=== PATIENT | female | born 1935 | race Caucasian/White ===

== ENCOUNTER 2017-02-06 23:00 | Emergency (ER) | payer SELFPAY ==
[~2017-02-06] VITALS: Ht 152.4 cm; Wt 65.9 kg
[2017-02-06] MEDS ORDERED: LISI-662 PO (23:22)
[2017-02-06] MEDS ORDERED: METF500T4 PO (23:22)
[2017-02-06 23:27] LABS: GLUCOSE COMMENT 1 Doctor Notified; GLUCOSE,POINT OF CARE 146 MG/DL (70-110)
[2017-02-06 23:51] LABS: BASOPHILS % (AUTO) 0.1 % (0.0-2.0); EOSINOPHILS % (AUTO) 0.9 % (1.0-6.0); HEMATOCRIT 38.9 % (36-46); HEMOGLOBIN 12.5 g/dL (12.0-16.0); LYMPHOCYTES # (AUTO) 0.4 K/uL (1.0-4.8); LYMPHOCYTES % (AUTO) 5.7 % (22.0-44.0); MEAN CORPUSCULAR HEMOGLOBIN 27.8 pg (26.0-34.0); MEAN CORPUSCULAR HGB CONC 32.2 G/dL (31.0-37.0); MEAN CORPUSCULAR VOLUME 86 fL (80-100); MONOCYTES # (AUTO) 0.5 K/uL (0.1-1.0); MONOCYTES % (AUTO) 6.6 % (2.0-9.0); PLATELET COUNT (AUTO) 154 K/uL (150-450); RED BLOOD CELL COUNT(AUTO) 4.51 MIL/uL (4.00-5.20); RED CELL DISTRIBUTION WIDTH 15.3 % (11.5-14.5); WHITE BLOOD COUNT (AUTO) 6.9 K/uL (4.5-11.0)
[2017-02-06 23:55] LABS: NEUTROPHILS % (AUTO) 86.7 % (40.0-70.0)
[2017-02-07 00:03] LABS: PROTHROMBIN TIME 10.7 SEC (9.4-11.6)
[2017-02-07 00:05] LABS: ANION GAP 14 mmol/L (8-16); CALCIUM, TOTAL 8.5 mg/dL (8.8-10.5); CARBON DIOXIDE 23 mmol/L (22-29); CHLORIDE 99 mmol/L (98-107); CREATININE 1.29 mg/dL (0.60-1.30); GLOMERULAR FILTR. RATE CALC 40 mL/min (>60); POTASSIUM 4.1 mmol/L (3.5-5.1); SODIUM SERUM 136 mmol/L (136-145); UREA NITROGEN, BLOOD 17 mg/dL (7-18)
[2017-02-07 00:28] LABS: ALANINE AMINOTRANSFERASE 26 U/L (12-78); ASPARTATE AMINOTRANSFERASE 35 U/L (15-37); BILIRUBIN,TOTAL 0.6 mg/dL (0.1-1.0); CREATINE KINASE MB 0.8 ng/mL (0-5); CREATINE KINASE, TOTAL 116 U/L (26-192); TOTAL PROTEIN, SERUM 7.9 g/dL (6.4-8.2)
[2017-02-07] MEDS ORDERED: KETOROLAC TROMETHAMINE 30 MG/ML VIAL IVP ONE (02:45)
[2017-02-07] MEDS ORDERED: SODIUM CHLORIDE 0.9% 1,000 ML IV ONE (02:45)
[2017-02-07] MEDS ORDERED: DIPHENOXYLATE/ATROP 2.5-0.025 MG TABLET PO ONE (02:45)
[2017-02-07] MEDS ORDERED: ONDANSETRON HCL 4 MG/2 ML VIAL IVP ONE (02:45)
[2017-02-07] MEDS ORDERED: ACETAMINOPHEN 500 MG TABLET PO ONE (02:45)
[2017-02-07 03:30] VITALS: BP 115/72
== END 2017-02-07 03:47 | disposition home or self-care (01) ==
LOC: EMS 23:02
DX: K52.9 Noninfective gastroenteritis and colitis, unspecified (principal); E11.9 Type 2 diabetes mellitus without complications; E78.00 Pure hypercholesterolemia, unspecified; I10 Essential (primary) hypertension
CPT/HCPCS: 36415; 80053; 82550; 82553; 82962; 84484; 85025; 85610; 85730; 96360; 96374; 96375; 99285; J1885; J2405; J7030

== ENCOUNTER 2019-02-15 19:05 | Inpatient (IN) | payer SELFPAY ==
[~2019-02-15] VITALS: Ht 152.4 cm; Wt 69.6 kg
[~2019-02-15 19:05] MED LIST: LISI-662 PO; METF-960 PO
[2019-02-15] MEDS ORDERED: GABA-531 PO (19:22)
[2019-02-15] MEDS ORDERED: ASPI-1182 PO (19:22)
[2019-02-15 19:28] LABS: GLUCOSE,POINT OF CARE 118 MG/DL (70-110)
[2019-02-15] MEDS ORDERED: BARIUM SULFATE 0.1% SUSPENSION 450 ML BOTTLE PO ONE (19:45)
[2019-02-15] MEDS ORDERED: ONDANSETRON HCL 4 MG/2 ML VIAL IVP ONE (19:45)
[2019-02-15] MEDS ORDERED: SODIUM CHLORIDE 0.9% 1,000 ML IV ONE (19:45)
[2019-02-15] MEDS ORDERED: IOVERSOL 320 MG/ML 100 ML VIAL ONE (20:12)
[2019-02-15] MEDS ORDERED: SODIUM CHLORIDE 0.9% 100 ML ONE (20:13)
[2019-02-15 20:20] LABS: BASOPHILS % (AUTO) 0.7 % (0.0-2.0); EOSINOPHILS % (AUTO) 5.3 % (1.0-6.0); HEMATOCRIT 24.9 % (36-46); HEMOGLOBIN 8.1 g/dL (12.0-16.0); LYMPHOCYTES # (AUTO) 1.3 K/uL (1.0-4.8); LYMPHOCYTES % (AUTO) 35.1 % (22.0-44.0); MEAN CORPUSCULAR HEMOGLOBIN 24.1 pg (26.0-34.0); MEAN CORPUSCULAR HGB CONC 32.4 G/dL (31.0-37.0); MEAN CORPUSCULAR VOLUME 75 fL (80-100); MONOCYTES # (AUTO) 0.4 K/uL (0.1-1.0); NEUTROPHILS # (AUTO) 1.9 K/uL (1.8-7.7); NEUTROPHILS % (AUTO) 48.9 % (40.0-70.0); PLATELET COUNT (AUTO) 197 K/uL (150-450); RED BLOOD CELL COUNT(AUTO) 3.34 MIL/uL (4.00-5.20); RED CELL DISTRIBUTION WIDTH 17.6 % (11.5-14.5)
[2019-02-15 20:27] LABS: ANION GAP 11 mmol/L (8-16); CALCIUM, TOTAL 9.2 mg/dL (8.8-10.5); CARBON DIOXIDE 26 mmol/L (22-29); CHLORIDE 104 mmol/L (98-107); CREATININE 0.77 mg/dL (0.60-1.30); GLOMERULAR FILTR. RATE CALC > 60 mL/min (>60); GLUCOSE,RANDOM 107 mg/dL (70-110); POTASSIUM 4.3 mmol/L (3.5-5.1); SODIUM SERUM 141 mmol/L (136-145); UREA NITROGEN, BLOOD 15 mg/dL (7-18)
[2019-02-15 20:33] LABS: ALANINE AMINOTRANSFERASE 25 U/L (12-78); ALBUMIN 3.7 g/dL (3.4-5.0); ALKALINE PHOSPHATASE 97 U/L (46-116); ASPARTATE AMINOTRANSFERASE 25 U/L (15-37); BILIRUBIN,TOTAL 0.4 mg/dL (0.1-1.0); LIPASE 126 U/L (73-393); TOTAL PROTEIN, SERUM 7.6 g/dL (6.4-8.2)
[2019-02-15 20:35] LABS: LACTIC ACID 1.5 mmol/L (0.4-2.0)
[2019-02-15 20:41] LABS: B-TYPE NATRIURETIC PEPTIDE 166 pg/mL (0-100)
[2019-02-15 22:14] LABS: APPEARANCE,URINE CLEAR (CLEAR); BILIRUBIN,URINE NEGATIVE (NEGATIVE); GLUCOSE, URINE (UA) NEGATIVE (NEGATIVE); KETONES,URINE NEGATIVE (NEGATIVE); LEUKOCYTE ESTERASE ,URINE NEGATIVE (NEGATIVE); NITRATE,URINE NEGATIVE (NEGATIVE); OCCULT BLOOD,URINE NEGATIVE (NEGATIVE); PH,URINE 6.5 (5.0-8.0); PROTEIN,URINE NEGATIVE (NEGATIVE); UROBILINOGEN,URINE 0.2 mg/dL (<=1.0)
[2019-02-15 22:25] LABS: BACTERIA,URINE None Seen /HPF (None Seen); RBC,URINE None Seen /HPF (0-2); SQUAMOUS EPITHELIAL CELL,UR None Seen /LPF (None Seen); WBC,URINE None Seen /HPF (0-5)
[2019-02-16] VITALS (7 sets, daily range): BP systolic 114–138; BP diastolic 50–66
[2019-02-16] MEDS ORDERED: ONDANSETRON HCL 4 MG/2 ML VIAL IVP PRN ×2 (00:30→04:45)
[2019-02-16] MEDS ORDERED: 0.9% SODIUM CHLORIDE 10 ML SYRINGE IVP PRN (00:30)
[2019-02-16] MEDS ORDERED: ACETAMINOPHEN 325 MG TABLET PO PRN ×2 (00:30→04:45)
[2019-02-16] MEDS ORDERED: MAGNESIUM HYDROXIDE SUSPENSION 30 ML UDCUP PO PRN (04:45)
[2019-02-16] MEDS ORDERED: HydrALAZINE HCL 20 MG/ML VIAL IVP PRN (04:45)
[2019-02-16] MEDS ORDERED: MORPHINE SULFATE 2 MG/ML SYRINGE IVP PRN (04:45)
[2019-02-16] MEDS ORDERED: BISACODYL 10 MG RECTAL RECTAL SUPPOSITORY PR PRN (04:45)
[2019-02-16] MEDS ORDERED: ZOLPIDEM TARTRATE 5 MG TABLET PO PRN (04:45)
[2019-02-16] MEDS ORDERED: SODIUM CHLORIDE 0.9% 1,000 ML IV ONE (04:45)
[2019-02-16] MEDS ORDERED: DEXTROSE 5%-0.9% SODIUM CHL 1,000 ML IV ONE (07:45)
[2019-02-16] MEDS: PANTOPRAZOLE SODIUM 40 MG/VIAL IVP SCH ×2 (08:16→20:10)
[2019-02-16] MEDS: HEPARIN SODIUM,PORCINE 5,000 UNITS/ML VIAL SQ SCH ×3 (08:16→23:49)
[2019-02-16] MEDS: ASPIRIN 81 MG EC TABLET PO SCH (08:17)
[2019-02-16] MEDS: DOCUSATE SODIUM 100 MG CAPSULE PO SCH ×2 (08:17→20:10)
[2019-02-16 17:49] LABS: GLUCOMETER DEV NAME(LOC) 5N.2; GLUCOSE,POINT OF CARE 104 MG/DL (70-110)
[2019-02-16] MEDS: HYDROCODONE/ACETAMINOPHEN 5-325 MG TABLET PO PRN (19:03)
[2019-02-16] MEDS: BISACODYL 10 MG RECTAL RECTAL SUPPOSITORY PR SCH (20:10)
[2019-02-17 03:39] LABS: GLUCOMETER DEV NAME(LOC) 5S.2; GLUCOSE,POINT OF CARE 87 MG/DL (70-110)
[2019-02-17 05:07] VITALS: BP 145/72
[2019-02-17 06:05] LABS: GLUCOMETER DEV NAME(LOC) 5S.1; GLUCOSE,POINT OF CARE 85 MG/DL (70-110)
[2019-02-17 06:44] LABS: GLUCOMETER DEV NAME(LOC) 5N.2; GLUCOSE,POINT OF CARE 81 MG/DL (70-110)
[2019-02-17 06:45] LABS: BASOPHILS % (AUTO) 0.7 % (0.0-2.0); EOSINOPHILS % (AUTO) 5.7 % (1.0-6.0); HEMATOCRIT 23.7 % (36-46); HEMOGLOBIN 7.7 g/dL (12.0-16.0); LYMPHOCYTES # (AUTO) 0.9 K/uL (1.0-4.8); LYMPHOCYTES % (AUTO) 29.6 % (22.0-44.0); MEAN CORPUSCULAR HEMOGLOBIN 24.1 pg (26.0-34.0); MEAN CORPUSCULAR HGB CONC 32.5 G/dL (31.0-37.0); MEAN CORPUSCULAR VOLUME 74 fL (80-100); MONOCYTES # (AUTO) 0.3 K/uL (0.1-1.0); MONOCYTES % (AUTO) 9.1 % (2.0-9.0); NEUTROPHILS # (AUTO) 1.6 K/uL (1.8-7.7); NEUTROPHILS % (AUTO) 54.9 % (40.0-70.0); PLATELET COUNT (AUTO) 169 K/uL (150-450); RED BLOOD CELL COUNT(AUTO) 3.19 MIL/uL (4.00-5.20); RED CELL DISTRIBUTION WIDTH 17.1 % (11.5-14.5)
[2019-02-17 07:27] LABS: ALANINE AMINOTRANSFERASE 17 U/L (12-78); ALKALINE PHOSPHATASE 74 U/L (46-116); ANION GAP 9 mmol/L (8-16); ASPARTATE AMINOTRANSFERASE 22 U/L (15-37); BILIRUBIN,TOTAL 0.5 mg/dL (0.1-1.0); CALCIUM, TOTAL 8.8 mg/dL (8.8-10.5); CARBON DIOXIDE 24 mmol/L (22-29); CHLORIDE 108 mmol/L (98-107); CREATININE 0.79 mg/dL (0.60-1.30); GLUCOSE,RANDOM 87 mg/dL (70-110); POTASSIUM 4.1 mmol/L (3.5-5.1); SODIUM SERUM 141 mmol/L (136-145); TOTAL PROTEIN, SERUM 6.3 g/dL (6.4-8.2); UREA NITROGEN, BLOOD 11 mg/dL (7-18)
[2019-02-17 07:29] LABS: GLOMERULAR FILTR. RATE CALC > 60 mL/min (>60)
[2019-02-17 07:54] VITALS: BP 121/54
[2019-02-17] MEDS: PANTOPRAZOLE SODIUM 40 MG/VIAL IVP SCH ×2 (08:49→20:20)
[2019-02-17] MEDS: DOCUSATE SODIUM 100 MG CAPSULE PO SCH ×2 (08:49→20:20)
[2019-02-17] MEDS: BISACODYL 10 MG RECTAL RECTAL SUPPOSITORY PR SCH ×2 (08:49→20:20)
[2019-02-17] MEDS ORDERED: DEXTROSE 5%-0.45% SODIUM CHL 500 ML IV ONE (11:00)
[2019-02-17] MEDS: ASPIRIN 81 MG EC TABLET PO SCH (11:07)
[2019-02-17] MEDS: HYDROCODONE/ACETAMINOPHEN 5-325 MG TABLET PO PRN ×2 (11:08→19:32)
[2019-02-17 11:34] VITALS: BP 141/57
[2019-02-17 15:40] VITALS: BP 126/51
[2019-02-17 20:04] VITALS: BP 140/56
[2019-02-17] MEDS: FOLIC ACID 1 MG TABLET PO SCH (20:20)
[2019-02-17 20:38] LABS: GLUCOMETER DEV NAME(LOC) 5N.2; GLUCOSE,POINT OF CARE 96 MG/DL (70-110)
[2019-02-17 20:39] LABS: GLUCOMETER DEV NAME(LOC) 5N.2; GLUCOSE,POINT OF CARE 140 MG/DL (70-110)
[2019-02-17 23:33] LABS: GLUCOMETER DEV NAME(LOC) 5S.2; GLUCOSE,POINT OF CARE 95 MG/DL (70-110)
[2019-02-18 00:18] VITALS: BP 105/46
[2019-02-18 04:30] VITALS: BP 116/52
[2019-02-18 06:01] LABS: BASOPHILS % (AUTO) 0.6 % (0.0-2.0); EOSINOPHILS % (AUTO) 3.9 % (1.0-6.0); HEMATOCRIT 22.5 % (36-46); HEMOGLOBIN 7.5 g/dL (12.0-16.0); LYMPHOCYTES # (AUTO) 0.9 K/uL (1.0-4.8); LYMPHOCYTES % (AUTO) 32.2 % (22.0-44.0); MEAN CORPUSCULAR HEMOGLOBIN 24.5 pg (26.0-34.0); MEAN CORPUSCULAR HGB CONC 33.4 G/dL (31.0-37.0); MEAN CORPUSCULAR VOLUME 74 fL (80-100); MONOCYTES # (AUTO) 0.4 K/uL (0.1-1.0); MONOCYTES % (AUTO) 14.8 % (2.0-9.0); NEUTROPHILS # (AUTO) 1.4 K/uL (1.8-7.7); NEUTROPHILS % (AUTO) 48.5 % (40.0-70.0); PLATELET COUNT (AUTO) 153 K/uL (150-450); RED BLOOD CELL COUNT(AUTO) 3.06 MIL/uL (4.00-5.20); RED CELL DISTRIBUTION WIDTH 16.9 % (11.5-14.5)
[2019-02-18 06:52] LABS: ANION GAP 9 mmol/L (8-16); CALCIUM, TOTAL 8.9 mg/dL (8.8-10.5); CARBON DIOXIDE 24 mmol/L (22-29); CHLORIDE 107 mmol/L (98-107); CREATININE 0.83 mg/dL (0.60-1.30); GLUCOSE,RANDOM 85 mg/dL (70-110); POTASSIUM 4.1 mmol/L (3.5-5.1); SODIUM SERUM 140 mmol/L (136-145); UREA NITROGEN, BLOOD 10 mg/dL (7-18)
[2019-02-18 06:55] LABS: GLOMERULAR FILTR. RATE CALC > 60 mL/min (>60)
[2019-02-18 07:45] VITALS: BP 124/55
[2019-02-18] MEDS: PANTOPRAZOLE SODIUM 40 MG/VIAL IVP SCH (09:37)
[2019-02-18] MEDS: HYDROCODONE/ACETAMINOPHEN 5-325 MG TABLET PO PRN (09:37)
[2019-02-18] MEDS: FOLIC ACID 1 MG TABLET PO SCH (09:38)
[2019-02-18] MEDS: ASPIRIN 81 MG EC TABLET PO SCH (09:38)
[2019-02-18] MEDS: DOCUSATE SODIUM 100 MG CAPSULE PO SCH (09:38)
[2019-02-18] MEDS: BISACODYL 10 MG RECTAL RECTAL SUPPOSITORY PR SCH (09:38)
[2019-02-18 12:22] VITALS: BP 143/57
[2019-02-18] MEDS ORDERED: BISA5TAB12 PR (13:18)
[2019-02-18] MEDS ORDERED: DSS100 PO (13:19)
[2019-02-18] MEDS ORDERED: SENN-176 PO (13:19)
[2019-02-18 15:09] LABS: GLUCOMETER DEV NAME(LOC) 5S.2; GLUCOSE,POINT OF CARE 102 MG/DL (70-110)
[2019-02-18 15:09] LABS: GLUCOMETER DEV NAME(LOC) 5S.2; GLUCOSE,POINT OF CARE 86 MG/DL (70-110)
== END 2019-02-18 14:13 | disposition home or self-care (01) | DRG 392 ==
LOC: EMS 19:07 → 5S 02-16 01:28 → 5N 02-16 11:15
PROVIDERS: ADMIT Internal Medicine; ATTEND Internal Medicine
DX: K59.00 Constipation, unspecified (principal); K56.7 Ileus, unspecified; K20.9 Esophagitis, unspecified; I10 Essential (primary) hypertension; E78.5 Hyperlipidemia, unspecified; E11.9 Type 2 diabetes mellitus without complications; D64.9 Anemia, unspecified; E78.00 Pure hypercholesterolemia, unspecified
CPT/HCPCS: 74019; 74177; 82271; 83605; 87040; 93005; 96361; 96374; C9113; G0378; J1644; J2405; J7030; J7042; J7050